=== PATIENT | female | born 1990 | race African-American/Black ===

== ENCOUNTER 2022-10-05 08:51 | Observation (INO) ==
[2022-10-05] MEDS ORDERED: ACETAMINOPHEN 325 MG TABLET PO PRN (13:34)
[2022-10-05] MEDS ORDERED: hydrALAZINE 20 MG/1 ML VIAL IV ONE (13:35)
[2022-10-05] MEDS ORDERED: diphenhydrAMINE CAP 25 MG CAPSULE PO ONE (13:37)
[2022-10-05] MEDS ORDERED: ONDANSETRON 4 MG/2 ML VIAL IV PRN (13:50)
[2022-10-05] MEDS ORDERED: hydrALAZINE 20 MG/1 ML VIAL IV PRN (13:53)
[2022-10-05] MEDS ORDERED: ALBUTEROL 2.5 MG/3 ML NEB RESP TX PRN (13:54)
[2022-10-05 14:07] LABS: Hemoglobin 7.3 GM/DL (12.0-16.0)
[2022-10-05] MEDS: diphenhydrAMINE CAP 25 MG CAPSULE PO PRN ×2 (15:36→20:30)
[2022-10-05] MEDS: PANTOPRAZOLE 40 MG TABLET PO SCH (15:36)
[2022-10-05] MEDS: amLODIPine 10 MG TABLET PO SCH (15:36)
[2022-10-05] MEDS ORDERED: SODIUM CHLORIDE 0.9% 1,000 ML IV PRN (15:59)
[2022-10-05] MEDS: busPIRone 10 MG TABLET PO SCH (20:29)
[2022-10-05] MEDS ORDERED: traZODone 50 MG TABLET PO SCH (21:00)
[2022-10-06 01:45] LABS: Hematocrit 29.6 VOL% (35.7-47.0); Hemoglobin 8.6 GM/DL (12.0-16.0)
[2022-10-06] MEDS: carvediloL 3.125 MG TABLET PO SCH ×2 (02:39→08:00)
[2022-10-06] MEDS: DOCUSATE SODIUM 100 MG CAPSULE PO SCH ×2 (02:39→08:00)
[2022-10-06 06:55] LABS: Basophils % 0.4 % (0.0-0.8); Eosinophils # 0.1 10*3/uL (0.0-0.87); Eosinophils % 2.1 % (0.00-10.9); Hemoglobin 9.2 GM/DL (12.0-16.0); Immature Granulocytes % 0.4 %; Immature Granulocytes Absolute 0.03 #; Lymphocytes # 0.9 10*3/uL (1.4-4.0); Lymphocytes % 13.1 % (21.3-54.2); Mean Corpuscular HGB Conc 28.8 GM/DL (32-36); Mean Corpuscular Volume 71.7 FL (87-102); Mean Platelet Volume 9.8 FL (9.6-12.0); Monocytes # 0.5 10*3/uL (0.11-0.8); Monocytes % 6.7 % (1.7-12.7); Neutrophils % 77.3 % (38.7-73.9); Platelet Count 310 T/CUMM (130-400); Red Blood Count 4.46 MC/CUMM (3.8-5.5); Red Cell Distribution Width 20.5 % (9.3-17.3); White Blood Count 6.7 T/CUMM (4-12)
[2022-10-06 06:56] LABS: Albumin 3.3 G/DL (3.4-5.0); Bilirubin,Total 0.7 MG/DL (0.20-1.00); Calcium 9.1 MG/DL (8.5-10.1); Osmolality,Calculated 280.4 MOS/KG (273-304); Potassium 3.7 MMOL/L (3.5-5.1); Total Protein 6.7 G/DL (6.4-8.2)
[2022-10-06] MEDS: busPIRone 10 MG TABLET PO SCH (08:00)
[2022-10-06] MEDS: amLODIPine 10 MG TABLET PO SCH (08:00)
[2022-10-06] MEDS: PANTOPRAZOLE 40 MG TABLET PO SCH (08:00)
[2022-10-06 08:28] VITALS: BP 173/120
== END 2022-10-06 09:35 | disposition home or self-care (01) ==
LOC: N.2W
PROVIDERS: ADMIT Family Medicine; ATTEND Family Medicine